=== PATIENT | male | born 1990 | race Caucasian/White ===

== ENCOUNTER 2017-06-08 05:45 | Emergency (ER) | payer BC ==
[2017-06-08] MEDS ORDERED: Lidocaine 1% 20 ML MDV INJECT ONE (05:59)
[2017-06-08] MEDS ORDERED: Lidocaine 1% 20 ML MDV ONE (06:00)
[2017-06-08] MEDS ORDERED: Diphtheria,Pertussis(Acell),Tetanus Vaccine 0.5 ML Syringe IM ONE (06:01)
[2017-06-08] MEDS ORDERED: Bacitracin Oint 1 GM U/D Packet TOP ONE (06:02)
[2017-06-08 06:03] VITALS: BP 166/136
--- NOTE | 2017-06-08 06:13 | EDM.PDOC ---
ED HPI GENERAL MEDICAL PROBLEM - General Chief Complaint: Bite:Animal, Insect Stated Complaint: CUT ON LIP Time Seen by Provider: 06/08/17 06:03 - History of Present Illness INITIAL COMMENTS - FREE TEXT/NARRATIVE: HISTORY AND PHYSICAL: History of present illness: Patient is 27-year-old white male presents status post dog bite to his face which he sustained multiple lacerations including one 2 is upper lip Kd's update on his tetanus and is in his possession he denies up-to-date tetanus he denies any other trauma concern Review of systems: As per history of present illness and below otherwise all systems reviewed and negative. Past medical history: As per history of present illness and as reviewed below otherwise noncontributory. Surgical history: As per history of present illness and as reviewed below otherwise noncontributory. Social history: No reported history of drug or alcohol abuse. Family history: As per history of present illness and as reviewed below otherwise noncontributory. Physical exam: HEENT: Patient has multiple lacerations to his right face including his right upper lip that's approximately 1 cm., normocephalic, pupils reactive, negative for conjunctival pallor or scleral icterus, mucous membranes moist, throat clear , neck supple, nontender, trachea midline. Lungs: Clear to auscultation, breath sounds equal bilaterally, chest nontender. Heart: S1S2, regular, negative for clicks, rubs, or JVD. Abdomen: Soft, nondistended, nontender. Negative for masses or hepatosplenomegaly. Negative for costovertebral tenderness. Pelvis: Stable nontender. Genitourinary: Deferred. Rectal: Deferred. Extremities: Atraumatic, negative for cords or calf pain. Neurovascular unremarkable. Neuro: Awake, alert, oriented. Cranial nerves II through XII unremarkable. Cerebellum unremarkable. Motor and sensory unremarkable throughout. Exam nonfocal. Diagnostics: None Therapeutics: Patient's wounds were irrigated copious 0.9 normal saline his lip was closed with 5-0 absorbable suture bacitracin was applied all his other wounds were dressed with bacitracin there was good hemostasis. Tetanus was updated Impression: #1 dog bite right face Definitive disposition and diagnosis as appropriate pending reevaluation and review of above. - Related Data Allergies Allergy/AdvReac Type Severity Reaction Status Date / Time No Known Allergies Allergy Verified 06/08/17 05:58 Home Meds: Home Meds . [No Known Home Meds] 06/08/17 [History] Social & Family History - Tobacco Use Smoking Status *Q: Current Every Day Smoker Years of Tobacco use: 3 - Alcohol Use Days Per Week of Alcohol Use: 1 Number of Drinks Per Day: 10 Total Drinks Per Week: 10 - Recreational Drug Use Recreational Drug Use: Yes Drug Use in Last 12 Months: Yes Recreational Drug Type: Reports: Marijuana/Hashish Recreational Drug Use Frequency: Not Used In Over 6 Months ED ROS GENERAL - Review of Systems Review Of Systems: ROS reveals no pertinent complaints other than HPI. ED EXAM, ANIMAL BITE - Physical Exam Exam: See Below (See dictation) Course - Orders/Labs/Meds Meds: Medications Discontinued Medications Generic Name Dose Route Start Last Admin Trade Name Joya PRN Reason Stop Dose Admin Lidocaine HCl 20 ml 06/08/17 05:59 Xylocaine 1% INJECT 06/08/17 06:00 ONETIME ONE Departure - Departure Time of Disposition: 06:02 Disposition: Home, Self-Care 01 Condition: Good Clinical Impression: Dog bite - Discharge Information Referrals: PCP,None [Primary Care Provider] - Additional Instructions: The following information is given to patients seen in the emergency department who are being discharged to home. This information is to outline your options for follow-up care. We provide all patients seen in our emergency department with a follow-up referral. The need for follow-up, as well as the timing and circumstances, are variable depending upon the specifics of your emergency department visit. If you don't have a primary care physician on staff, we will provide you with a referral. We always advise you to contact your personal physician following an emergency department visit to inform them of the circumstance of the visit and for follow-up with them and/or the need for any referrals to a consulting specialist. The emergency department will also refer you to a specialist when appropriate. This referral assures that you have the opportunity for followup care with a specialist. All of these measure are taken in an effort to provide you with optimal care, which includes your followup. Under all circumstances we always encourage you to contact your private physician who remains a resource for coordinating your care. When calling for followup care, please make the office aware that this follow-up is from your recent emergency room visit. If for any reason you are refused follow-up, please contact the [facility] emergency department at and asked to speak to the emergency department charge nurse. [facility] [address] [place] [address] [id number] Augmentin as prescribed follow-up plastic surgery above call for appointment return as needed as discussed
== END 2017-06-08 06:54 | disposition home or self-care (01) ==
LOC: MW.ED 05:45
DX: S01.551A Open bite of lip, initial encounter (principal); F17.210 Nicotine dependence, cigarettes, uncomplicated; Z23 Encounter for immunization; W54.0XXA Bitten by dog, initial encounter
CPT/HCPCS: 12011; 90471; 90715; 99282; 99282-25

== ENCOUNTER 2020-11-20 13:29 | Emergency (ER) | payer OTHER, BC ==
[2020-11-20] MEDS ORDERED: Ibuprofen 600 MG Tab PO ONE (14:01)
[2020-11-20] MEDS ORDERED: Cephalexin 250 MG Cap PO ONE (14:01)
--- NOTE | 2020-11-20 14:06 | EDM.PDOC ---
ED HPI GENERAL MEDICAL PROBLEM - General Chief Complaint: Laceration Stated Complaint: EAR TEAR Time Seen by Provider: 11/20/20 13:33 - History of Present Illness INITIAL COMMENTS - FREE TEXT/NARRATIVE: CHIEF COMPLAINT(S): Ear laceration HISTORY OF PRESENT ILLNESS: This is a 30-year-old man and without any past medical history who comes to the emergency department with a chief complaint of a ear laceration. 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 He states that there was a wire that was under tension and it flew back and hit his right ear causing it to cut. He states that he went home and his completely cleaned it. He states that he does not know if he needs any stitches. He states that his pain is currently 1-2 out of 10. He denies any radiation of this pain. He denies any head injury or loss of consciousness. He states that the bleeding has stopped. He denies any numbness, tingling, weakness. He denies any other symptoms. The patient states that his tetanus is up-to-date. REVIEW OF SYSTEMS: Skin: Positive for ear laceration MSK: Denies joint pain Neurological: Denies blurred vision PAST MEDICAL HISTORY: As per history of present illness and as reviewed below otherwise noncontributory. SURGICAL HISTORY: As per history of present illness and as reviewed below otherwise noncontributory. SOCIAL HISTORY: As per history of present illness and as reviewed below otherwise noncontributory. FAMILY HISTORY: As per history of present illness and as reviewed below otherwise noncontributory. EXAMINATION OF ORGAN SYSTEMS/BODY AREAS: Constitutional: Blood pressure was 139/82, heart rate 87, respiratory rate 18 with an oxygen saturation of 96% on room air. Temperature 36.5 General: overall well-appearing man who is in no acute distress Psychiatric: Appropriate mood and affect. Eyes: No scleral icterus or conjunctival erythema ENMT: Moist mucous membranes. No pharyngeal erythema Cardiovascular: Regular, rate, and rhythm. No gallops, murmurs, or rubs. Bilateral upper extremity pulses symmetric and intact. No peripheral edema. No JVD. Respiratory: Lungs clear to auscultation bilaterally. No wheezes, rales, or rhonchi. Gastrointestinal: Soft, non-tender, non-distended. Normoactive bowel sounds Genitourinary: No suprapubic tenderness Musculoskeletal: Normal range of motion. Skin: There is a 1 cm laceration to the posterior aspect of the right ear with some cartilage exposed. There is not appear to be any cartilage laceration. No active bleeding. No auricular hematoma. Neurological: Alert, GCS 15 MEDICAL DECISION MAKING AND COURSE IN THE ED WITH INTERPRETATION/REVIEW OF DIAGNOSTIC STUDIES: This is a 30-year-old man without any significant past medical history who comes to the emergency department with laceration with cartilage exposed of the right ear. Patient has already washed out his right ear therefore we will do primary closure. Patient's tetanus is up-to-date. We will provide him with ibuprofen. I did discuss with the patient that I would like to start him on Keflex for prophylaxis given that the cartilage is exposed. He was amenable to this plan. Laceration Repair Note Repair of the 1 cm right ear wound was done by myself. Wound was irrigated well with saline. No foreign bodies were noted. The wound was repaired with 2x 6-0 directed nylon sutures. Wound edges approximated well. After repair I did discuss with patient strict return precautions and that he needed to return in 5 to 7 days for removal. He was amenable discharge at this time and had no further questions. DISPOSITION: The patient was discharged home in stable condition. The patient will follow up with primary care physician or emergency department in 5 to 7 days for suture removal CONDITION: Fair PROCEDURES: Ear laceration repair FINAL IMPRESSION(S)/DIAGNOSES: 1. Acute right ear laceration status post suture repair Barney Bernal M.D. right ear Pain Score (Numeric/FACES): 6 - Related Data Allergies Allergy/AdvReac Type Severity Reaction Status Date / Time No Known Allergies Allergy Verified 11/20/20 13:43 Home Meds: Home Meds cephALEXin [Cephalexin] 250 mg PO BID #6 capsule 11/20/20 [Rx] Past Medical History - Past Health History Medical/Surgical History: Denies Medical/Surgical History Respiratory History: Reports: Asthma Neurological History: Reports: Head Trauma - Past Surgical History Other Neurological Surgeries/Procedures: History of subdural hematoma Social & Family History - Family History Family Medical History: No Pertinent Family History - Tobacco Use Packs/Tins Daily: 0.1 - Recreational Drug Use Recreational Drug Use: No ED ROS GENERAL - Review of Systems Review Of Systems: See Below ED EXAM, SKIN/RASH Exam: See Below Course - Vital Signs Last Recorded V/S: Last Vital Signs Temp 36.5 C 11/20/20 13:40 Pulse 87 11/20/20 13:40 Resp BP 139/82 11/20/20 13:40 Pulse Ox 96 11/20/20 13:40 - Orders/Labs/Meds Meds: Medications Discontinued Medications Generic Name Dose Route Start Last Admin Trade Name Joya PRN Reason Stop Dose Admin Cephalexin 250 mg 11/20/20 14:01 11/20/20 14:14 Cephalexin 250 Mg Cap PO 11/20/20 14:02 250 mg ONETIME ONE Administration Ibuprofen 600 mg 11/20/20 14:01 11/20/20 14:14 Ibuprofen 600 Mg Tab PO 11/20/20 14:02 600 mg ONETIME ONE Administration Departure - Departure Time of Disposition: 14:06 Disposition: Home, Self-Care 01 Condition: Fair Clinical Impression: Laceration of ear - Discharge Information *PRESCRIPTION DRUG MONITORING PROGRAM REVIEWED*: No *COPY OF PRESCRIPTION DRUG MONITORING REPORT IN PATIENT JD: No Prescriptions: cephALEXin [Cephalexin] 250 mg PO BID #6 capsule Instructions: Laceration Care, Adult, [id number], Sutures, Sherine, or Adhesive Wound Closure, [id number] Referrals: PCP,None [Primary Care Provider] - Forms: ED Department Discharge Additional Instructions: Your evaluated today on an emergent basis. At this time we did put 2 stitches in your right ear. Given that there is was some cartilage exposed we did provide you with antibiotics to prevent infection. The stitches need to be removed in 5 to 7 days. If you have any redness, pus drainage, fevers please return to the emergency department. [facility] - Primary Care [address] [place] [address] [id number] [address] [id number] The patient is informed of any results of their evaluation and diagnostic workup and all questions are answered. They are given discharge instructions and return precautions. The patient is stable for discharge. The patient states they understand and agree with the plan and that they will return if their symptoms get worse or if they have any new concerns. The following information is given to patients seen in the emergency department who are being discharged to home. This information is to outline your options for follow-up care. We provide all patients seen in our emergency department with a follow-up referral. The need for follow-up, as well as the timing and circumstances, are variable depending upon the specifics of your emergency department visit. If you don't have a primary care physician on staff, we will provide you with a referral. We always advise you to contact your personal physician following an emergency department visit to inform them of the circumstance of the visit and for follow-up with them and/or the need for any referrals to a consulting specialist. The emergency department will also refer you to a specialist when appropriate. This referral assures that you have the opportunity for follow-up care with a specialist. All of these measure are taken in an effort to provide you with optimal care, which includes your follow-up. Under all circumstances we always encourage you to contact your private physician who remains a resource for coordinating your care. When calling for follow-up care, please make the office aware that this follow-up is from your recent emergency room visit. If for any reason you are refused follow-up, please contact the [facility] Emergency Department at and asked to speak to the emergency department charge nurse. Sepsis Event Note (ED) - Evaluation Sepsis Screening Result: No Definite Risk
[2020-11-20 14:09] VITALS: BP 139/82; PULSE 87
== END 2020-11-20 14:21 | disposition home or self-care (01) ==
LOC: MW.ED 13:29
DX: S01.311A Laceration without foreign body of right ear, initial encounter (principal); Z72.0 Tobacco use; W26.8XXA Contact with other sharp object(s), not elsewhere classified, initial encounter
CPT/HCPCS: 12011; 99282; A9270

== ENCOUNTER 2021-10-07 07:29 | Emergency (ER) | payer OTHER, BC ==
[2021-10-07] MEDS ORDERED: ceFAZolin 1 GM Vial IM ONE (07:56)
[2021-10-07] MEDS ORDERED: Water For Injection, Sterile 10 ML SDV INJECT ONE (07:59)
[2021-10-07] MEDS ORDERED: Water For Injection, Sterile 20 ML ONE (08:03)
[2021-10-07] MEDS: Lidocaine 1% 5 ML VIAL INJECT ONE ×2 (08:06→08:16)
[2021-10-07 15:15] VITALS: BP 132/70; PULSE 74
== END 2021-10-07 09:20 | disposition home or self-care (01) ==
LOC: MW.ED 07:29
DX: S61.012A Laceration without foreign body of left thumb without damage to nail, initial encounter (principal); W26.0XXA Contact with knife, initial encounter
CPT/HCPCS: 12001; 73140; 96372; 99283; J0690

== ENCOUNTER 2022-09-11 10:16 | Emergency (ER) | payer OTHER, BC ==
[2022-09-11] MEDS ORDERED: Acetaminophen 500 MG Tab PO ONE (10:33)
[2022-09-11 10:37] VITALS: BP 132/79; PULSE 78
== END 2022-09-11 10:58 | disposition home or self-care (01) ==
LOC: MW.ED 10:16
DX: S01.01XA Laceration without foreign body of scalp, initial encounter (principal); J45.909 Unspecified asthma, uncomplicated; W22.8XXA Striking against or struck by other objects, initial encounter
CPT/HCPCS: 12001; 99282; A9270